=== PATIENT | male | born 1940 | race Caucasian/White ===

== ENCOUNTER 2018-10-28 15:01 | Emergency (ER) | payer OTHER ==
[2018-10-28] MEDS ORDERED: NA CHLORIDE 0.9% 500 ML ONE ×2 (15:25→16:54)
[2018-10-28 15:37] LABS: Absolute Lymphocytes (CBC) 0.7 K/uL (0.7-4.9); Absolute Monocytes 0.7 K/uL (0.1-1.3); Absolute Neutrophil 8.1 K/uL (1.8-8.0); Basophils % 0.3 % (0-1.3); Eosinophils % 0.3 % (0-4.4); Hematocrit 42.2 % (39.6-49.0); Lymphocytes % 7.6 % (15.3-44.8); MPV 8.1 fL (7.6-11.3); Monocytes % 6.9 % (3.3-12.3); RBC Red Blood Cell Count 4.74 M/uL (4.33-5.43)
[2018-10-28 15:53] LABS: BUN Blood Urea Nitrogen 29 mg/dL (7-18); Bicarbonate 21 mmol/L (21-32); Glucose Level 177 mg/dL (74-106); Potassium 3.9 mmol/L (3.5-5.1); Sodium Level 137 mmol/L (136-145); Troponin (Emerg Dept Use Only) < 0.02 ng/mL (0.0-0.045)
--- NOTE | 2018-10-28 16:05 | RAD REPORT ---
EXAM DESCRIPTION: CT - Head Brain Wo Cont - 10/28/2018 3:47 pm CLINICAL HISTORY: dizziness COMPARISON: None TECHNIQUE: Computed axial tomography of the head was obtained. IV contrast was not requested. All CT scans are performed using dose optimization technique as appropriate and may include automated exposure control or mA/KV adjustment according to patient size. FINDINGS: An intracranial bleed is not seen . The ventricles are normal in caliber. No extra-axial fluid collection is noted. Mild low-density areas within periventricular, deep and sub cortical white matter likely represent ischemic changes secondary to small vessel disease. Fluid within the sinuses/ mastoids is not seen. IMPRESSION: No acute intracranial abnormality is seen. If patient's symptoms persist MRI of the bra in would be recommended.
--- NOTE | 2018-10-28 16:33 | ER ---
Nurse's Notes [facility] Name: Deondre Wong Jr Age: 78 yrs Sex: Male : 1940 Arrival Date: 10/28/2018 Time: 15:02 Bed 30 Private MD: Diagnosis: Dizziness and giddiness;Dehydration Presentation: 10/28 15:02 Presenting complaint: EMS states: "HE WAS LIGHT HEADED. HE REFUSED TO COME WITH US AT FIRST. HE SAID HE WAS DRIVING A LOT. VITAL SIGNS ARE GOOD. HIS SUGAR WAS 191. HE SAYS HE IS DIABETIC BUT DOES NOT TAKE ANY MEDICINE. HE WAS WOBBLY WHEN HE STOOD UP.". Transition of care: patient was not received from another setting of care. Onset of symptoms was October 28, 2018 at 14:30. Risk Assessment: Do you want to hurt yourself or someone else? Patient reports no desire to harm self or others. Initial Sepsis Screen: Does the patient meet any 2 criteria? No. Patient's initial sepsis screen is negative. Does the patient have a suspected source of infection? No. Patient's initial sepsis screen is negative. Care prior to arrival: None. 15:02 Method Of Arrival: EMS: [facility] 15:02 Acuity: WAI 3 rv Triage Assessment: 15:10 General: Appears in no apparent distress. comfortable, Behavior is calm, cooperative. rv Pain: Complains of pain in abdomen. Historical: - Allergies: 15:06 NSAIDS; rv - Home Meds: 15:06 None [Active]; rv - PMHx: 15:06 Hypertension; Diabetes - NIDDM; rv - PSHx: 15:06 ABDOMINAL SURGERY; TRACHEOSTOMY; VOCAL CORDS REMOVED; rv - Immunization history:: Adult Immunizations unknown. - Social history:: Smoking status: unknown. - Ebola Screening: : Patient negative for fever greater than or equal to 101.5 degrees Fahrenheit, and additional compatible Ebola Virus Disease symptoms Patient denies exposure to infectious person Patient denies travel to an Ebola-affected area in the 21 days before illness onset. - Family history:: not pertinent. - Hospitalizations: : No recent hospitalization is reported. Screenin:09 Abuse screen: Denies threats or abuse. Denies injuries from another. Nutritional rv screening: No deficits noted. Tuberculosis screening: No symptoms or risk factors identified. 15:09 Fall Risk No fall in past 12 months (0 pts). Secondary diagnosis (15 points) impaired rv mobility, No IV (0 pts). Ambulatory Aid- None/Bed Rest/Nurse Assist (0 pts). Gait- Weak (10 pts.). Mental Status- Oriented to own ability (0 pts). Total Freire Fall Scale indicates Low Risk Score (25-44 pts). Fall prevention measures have been instituted. Side Rails Up X 2 Placed close to Nursing Station Frequent Obs/Assesments occuring As available Patient and Family Educated on Fall Prevention Program and strategies. Assessment: 15:35 General: Appears in no apparent distress. comfortable, Behavior is calm, cooperative. rv Pain: Complains of pain in abdomen. Neuro: Level of Consciousness is awake, alert, obeys commands, Oriented to person, place, time, situation. Cardiovascular: Capillary refill < 3 seconds. Respiratory: Airway is patent. Respiratory: GI: No signs and/or symptoms were reported involving the gastrointestinal system. : No signs and/or symptoms were reported regarding the genitourinary system. EENT: No signs and/or symptoms were reported regarding the EENT system. Derm: Skin is intact. Musculoskeletal: No signs and/or symptoms reported regarding the musculoskeletal system. Vital Signs: 15:07 BP 127 / 63; Pulse 110; Resp 22 S; Temp 98(O); Pulse Ox 95% on R/A; Weight 90.72 kg (M);rv 15:30 BP 149 / 78; Pulse 101; Resp 18; Pulse Ox 95% on R/A; rv 16:30 BP 131 / 89; Pulse 99; Resp 20; Pulse Ox 97% on R/A; rv 17:00 BP 121 / 51; Pulse 97; Resp 18 S; Pulse Ox 96% on R/A; rv 17:15 BP 125 / 48; Pulse 94; Resp 17 S; Pulse Ox 97% on R/A; rv ED Course: 15:02 Patient arrived in ED. rv 15:04 Jesus Metz MD is Attending Physician. rn 15:05 Triage completed. rv 15:08 Patient has correct armband on for positive identification. Placed in gown. Bed in low rv position. Call light in reach. Side rails up X2. playground monitor on. Pulse ox on. NIBP on. 15:10 Patient placed in an exam room, on a stretcher, on awake overnight monitor, on pulse oximetry, rv Patient notified of wait time. 15:20 Inserted saline lock: 20 gauge in right antecubital area, using aseptic technique. rv Blood collected. 15:34 Troponin (emerg Dept Use Only) Sent. rv 15:34 Basic Metabolic Panel Sent. rv 15:34 CBC with Diff Sent. rv 15:34 Ketone, Serum Sent. rv 15:46 CT completed. Patient moved to CT via stretcher. Patient moved back from CT. bq 15:48 CT Head Brain wo Cont In Process Unspecified. EDMS 18:37 No provider procedures requiring assistance completed. IV discontinued, bleeding rv controlled, No redness/swelling at site. Pressure dressing applied. Administered Medications: 15:25 Drug: NS 0.9% 500 ml Route: IV; Rate: bolus; Site: right antecubital; rv 17:24 Follow up: IV Status: Completed infusion rv 17:20 Drug: NS 0.9% 500 ml Route: IV; Rate: bolus; Site: right antecubital; rv 18:37 Follow up: IV Status: Completed infusion rv Outcome: 16:32 Discharge ordered by . rn 18:37 Discharged to home via wheelchair. rv 18:37 Condition: good 18:37 Discharge instructions given to patient, Instructed on discharge instructions, follow up and referral plans. Demonstrated understanding of instructions, follow-up care. 18:38 Patient left the ED. rv Signatures: Dispatcher [employer] EDMS Paula Greenberg Roman, MD MD rn Vicente, Ronaldo, RN RN rv Corrections: (The following items were deleted from the chart) 17:25 17:20 NS 0.9% 500 ml IV at bolus in left antecubital rv rv
--- NOTE | 2018-10-28 16:34 | EDPHYS ---
Physician Documentation [facility] Name: Deondre Wong Jr Age: 78 yrs Sex: Male : 1940 Arrival Date: 10/28/2018 Time: 15:02 Bed 30 Private MD: ED Physician Jesus Metz HPI: 10/28 15:15 This 78 yrs old Male presents to ER via EMS with complaints of dizziness. rn 15:15 The patient presents with dizziness, lightheadedness. Onset: The symptoms/episode rn began/occurred just prior to arrival. Modifying factors: The symptoms are alleviated by nothing, the symptoms are aggravated by standing up. Severity of symptoms: At their worst the symptoms were moderate in the emergency department the symptoms have improved. The patient has not experienced similar symptoms in the past. Reports lightheaded and dizzy, reports has been driving around a lot for last 2 days, stopped for gas today at [employer], sat on toilet, got lightheaded, weak, muscle cramping of legs, and called for help, no syncope, employees called 911. . 15:23 Initally refused transport but when stood up felt lightheaded, EMS told him better to rn come.. 15:23 Also reports since driving around, hasn't had anything to eat in 1-2 days or drink. rn FOund with small water bottle. . Historical: - Allergies: 15:06 NSAIDS; rv - Home Meds: 15:06 None [Active]; rv - PMHx: 15:06 Hypertension; Diabetes - NIDDM; rv - PSHx: 15:06 ABDOMINAL SURGERY; TRACHEOSTOMY; VOCAL CORDS REMOVED; rv - Immunization history:: Adult Immunizations unknown. - Social history:: Smoking status: unknown. - Ebola Screening: : Patient negative for fever greater than or equal to 101.5 degrees Fahrenheit, and additional compatible Ebola Virus Disease symptoms Patient denies exposure to infectious person Patient denies travel to an Ebola-affected area in the 21 days before illness onset. - Family history:: not pertinent. - Hospitalizations: : No recent hospitalization is reported. ROS: 15:23 Constitutional: Negative for fever, chills, and weight loss, Eyes: Negative for injury, rn pain, redness, and discharge, Neck: Negative for injury, pain, and swelling, Cardiovascular: Negative for chest pain, palpitations, and edema, Respiratory: Negative for shortness of breath, cough, wheezing, and pleuritic chest pain, Abdomen/GI: Negative for abdominal pain, nausea, vomiting, diarrhea, and constipation, MS/Extremity: Negative for injury and deformity, Skin: Negative for injury, rash, and discoloration, Neuro: Negative for headache, numbness, tingling, and seizure. Exam: 15:23 Constitutional: Overweight male, sitting upright, laughing, no acute distress rn Head/Face: Normocephalic, atraumatic. Eyes: Pupils equal round and reactive to light, extra-ocular motions intact. Lids and lashes normal. Conjunctiva and sclera are non-icteric and not injected. Cornea within normal limits. Periorbital areas with no swelling, redness, or edema. ENT: dry mucous membranes Cardiovascular: Regular rate and rhythm with a normal S1 and S2. No gallops, murmurs, or rubs. Normal PMI, no JVD. No pulse deficits. Respiratory: Lungs have equal breath sounds bilaterally, clear to auscultation and percussion. No rales, rhonchi or wheezes noted. No increased work of breathing, no retractions or nasal flaring. Abdomen/GI: Soft, non-tender, with normal bowel sounds. No distension or tympany. No guarding or rebound. No evidence of tenderness throughout. Skin: Warm, dry with normal turgor. Normal color with no rashes, no lesions, and no evidence of cellulitis. MS/ Extremity: Pulses equal, no cyanosis. Neurovascular intact. Full, normal range of motion. Equal circumference. Neuro: Awake and alert, GCS 15, oriented to person, place, time, and situation. Cranial nerves II-XII grossly intact. Motor strength 5/5 in all extremities. Sensory grossly intact. Cerebellar exam normal. Vital Signs: 15:07 BP 127 / 63; Pulse 110; Resp 22 S; Temp 98(O); Pulse Ox 95% on R/A; Weight 90.72 kg (M);rv 15:30 BP 149 / 78; Pulse 101; Resp 18; Pulse Ox 95% on R/A; rv 16:30 BP 131 / 89; Pulse 99; Resp 20; Pulse Ox 97% on R/A; rv 17:00 BP 121 / 51; Pulse 97; Resp 18 S; Pulse Ox 96% on R/A; rv 17:15 BP 125 / 48; Pulse 94; Resp 17 S; Pulse Ox 97% on R/A; rv MDM: 15:04 Patient medically screened. rn 16:31 Differential diagnosis: generalized weakness, hypovolemia, idiopathic dizziness, rn near-syncope. Data reviewed: vital signs, nurses notes, lab test result(s), and as a result, I will discharge patient. Counseling: I had a detailed discussion with the patient and/or guardian regarding: the historical points, exam findings, and any diagnostic results supporting the discharge/admit diagnosis, lab results, the need for outpatient follow up, to return to the emergency department if symptoms worsen or persist or if there are any questions or concerns that arise at home. Response to treatment: the patient's symptoms have markedly improved after treatment, the patient is now symptom free, patient is well hydrated. and as a result, I will discharge patient. Special discussion: I discussed with the patient/guardian in detail that at this point there is no indication for admission to the hospital. It is understood, however, that if the symptoms persist or worsen the patient needs to return immediately for re-evaluation. ED course: Pt feels better, no further dizziness, + dehydration from not eating/driving. Will dc home after rehydration.. 10/28 15:06 Order name: CBC with Diff; Complete Time: 16: rn 10/28 15:06 Order name: Basic Metabolic Panel; Complete Time: 16: rn 10/28 15:06 Order name: Troponin (emerg Dept Use Only); Complete Time: 16: rn 10/28 15:06 Order name: Ketone, Serum; Complete Time: 16: rn 10/28 15:17 Order name: CK; Complete Time: 16: rn 10/28 15:34 Order name: Glucose, Ancillary Testing; Complete Time: 16:06 EDMS 10/28 15:06 Order name: IV Start; Complete Time: 15:34 rn 10/28 15:06 Order name: EKG; Complete Time: 15: rn 10/28 15:06 Order name: EKG - Nurse/Tech; Complete Time: 15:34 rn 10/28 15:06 Order name: CT Head Brain wo Cont; Complete Time: 16: rn 10/28 15:06 Order name: Glucose Level; Complete Time: 15:34 rn Administered Medications: 15:25 Drug: NS 0.9% 500 ml Route: IV; Rate: bolus; Site: right antecubital; rv 17:24 Follow up: IV Status: Completed infusion rv 17:20 Drug: NS 0.9% 500 ml Route: IV; Rate: bolus; Site: right antecubital; rv 18:37 Follow up: IV Status: Completed infusion rv Disposition: 10/28/18 16:32 Discharged to Home. Impression: Dizziness and giddiness, Dehydration. - Condition is Stable. - Discharge Instructions: Dehydration, Adult, Dizziness. - Medication Reconciliation Form, Thank You Letter, Antibiotic Education, Prescription Opioid Use form. - Follow up: Private Physician; When: As needed; Reason: Recheck today's complaints, Re-evaluation by your physician. - Problem is new. - Symptoms have improved. Signatures: Dispatcher [employer] EDMS Jesus Metz MD MD rn Vicente, Ronaldo, RN RN rv Corrections: (The following items were deleted from the chart) 15:26 15:23 Constitutional: Overweight male, sitting upright, laughing, no acute distress rn Head/Face: Normocephalic, atraumatic. Eyes: Pupils equal round and reactive to light, extra-ocular motions intact. Lids and lashes normal. Conjunctiva and sclera are non-icteric and not injected. Cornea within normal limits. Periorbital areas with no swelling, redness, or edema. Cardiovascular: Regular rate and rhythm with a normal S1 and S2. No gallops, murmurs, or rubs. Normal PMI, no JVD. No pulse deficits. Respiratory: Lungs have equal breath sounds bilaterally, clear to auscultation and percussion. No rales, rhonchi or wheezes noted. No increased work of breathing, no retractions or nasal flaring. Abdomen/GI: Soft, non-tender, with normal bowel sounds. No distension or tympany. No guarding or rebound. No evidence of tenderness throughout. Skin: Warm, dry with normal turgor. Normal color with no rashes, no lesions, and no evidence of cellulitis. MS/ Extremity: Pulses equal, no cyanosis. Neurovascular intact. Full, normal range of motion. Equal circumference. Neuro: Awake and alert, GCS 15, oriented to person, place, time, and situation. Cranial nerves II-XII grossly intact. Motor strength 5/5 in all extremities. Sensory grossly intact. Cerebellar exam normal. rn 18:38 16:32 10/28/2018 16:32 Discharged to Home. Impression: Dizziness and giddiness; rv Dehydration. Condition is Stable. Forms are Medication Reconciliation Form, Thank You Letter, Antibiotic Education, Prescription Opioid Use. Follow up: Private Physician; When: As needed; Reason: Recheck today's complaints, Re-evaluation by your physician. Problem is new. Symptoms have improved. rn
--- NOTE | 2018-10-29 07:58 | EKG ---
Test Date: 2018-10-28 Test Time: 15:25:11 Sports Attorney: MEASUREMENT RESULTS: Intervals: Rate: 97 RI: 184 QRSD: 78 QT: 368 QTc: 467 [place]: P: 7 RI: 184 QRS: 8 T: 141 INTERPRETIVE STATEMENTS: Normal sinus rhythm Minimal voltage criteria for LVH, may be normal variant T wave abnormality, consider lateral ischemia Prolonged QT Abnormal ECG No previous ECG available for comparison Electronically Signed On 10-29-18 07:53:21 METHODS ANALYST DATA PROCESSING by Ravindra Slaughter
== END 2018-10-28 18:38 | disposition home or self-care (01) ==
LOC: ER 15:01
DX: E86.0 Dehydration (principal); I10 Essential (primary) hypertension
CPT/HCPCS: 36415; 70450; 80048; 82010; 82550; 82962; 84484; 85025; 93005; 96360; 96361; 99285

== ENCOUNTER 2018-10-28 19:15 | Observation (INO) | payer OTHER ==
--- OUTSIDE RECORDS SUMMARY | 2018-10-28 19:16 | XMS REPORT | Clinical Summary ---
:1940 Author Organization [facility] Address [address] [place] [address] Care Team Providers Name Role Phone Asked, No Pcp Primary Care Provider Unavailable Allergies Active Allergy Reactions Severity Noted Date Comments Nsaids (Non-Steroidal Anti-Inflammatory Drug) 04/25/2016 Medications Medication Sig Dispensed Refills Start Date End Date Status sertraline (ZOLOFT) sertraline 100 mg 0 Active 100 MG tablet tablet traMADol (ULTRAM) 50 tramadol 50 mg 0 Active mg tablet tablet mupirocin mupirocin 2 % 0 Active (BACTROBAN) 2 % topical cream cream metFORMIN Take 1 tablet(s) 0 Active (GLUCOPHAGE) 500 MG twice a day by oral tablet route. lovastatin (MEVACOR) lovastatin 40 mg 0 Active 40 MG tablet tablet lisinopril Take 1 tablet(s) 0 Active (PRINIVIL,ZESTRIL) every day by oral 10 MG tablet route. Active Problems Problem Noted Date Humerus head fracture 05/25/2016 Diabetes mellitus 04/25/2016 Essential hypertension 04/25/2016 HLD (hyperlipidemia) 04/25/2016 Closed fracture of surgical neck of humerus 04/25/2016 Social History Tobacco Use Types Packs/Day Years Used Date Former Smoker Alcohol Use Drinks/Week oz/Week Comments No Sex Assigned at Date Recorded Not on file Job Start Date Occupation Industry Not on file Not on file Not on file Travel History Travel Start Travel End No recent travel history available. Last Filed Vital Signs Not on file Plan of Treatment Health Maintenance Due Date Last Done Comments DIABETIC RETINAL EYE EXAM 1940 DIABETIC FOOT EXAM 1951 SHINGLES VACCINES (1 of 2) 1991 PNEUMOCOCCAL POLYSACCHARIDE VACCINE AGE 65 AND OVER 2006 PNEUMOCOCCAL-13 2006 INFLUENZA VACCINE 05/02/2018 Results Not on fileafter 2017 Insurance Payer Benefit Plan / Group Subscriber ID Type Phone Address [employer] MEDICARE [employer] MEDICARE PPO/PFFS/[facility] xxxxxxxxx PPO Advance Directives Patient has advance care planning documents on file. For more information, please contact:Wolf Ansari[address] [place] [address]
--- NOTE | 2018-10-28 20:44 | ER ---
Nurse's Notes [facility] Name: Deondre Wong Jr Age: 78 yrs Sex: Male : 1940 Arrival Date: 10/28/2018 Time: 19:16 Bed 4 Private MD: Diagnosis: Dizziness and giddiness-elevated troponin;Syncope and collapse-near;Congenital hiatus hernia Presentation: 10/28 19:28 Presenting complaint: Patient states: I was here earlier today and I just feel to dizzy la1 to drive home. Transition of care: patient was not received from another setting of care. Onset of symptoms was October 28, 2018. Risk Assessment: Do you want to hurt yourself or someone else? Patient reports no desire to harm self or others. Initial Sepsis Screen: Does the patient meet any 2 criteria? No. Patient's initial sepsis screen is negative. Does the patient have a suspected source of infection? No. Patient's initial sepsis screen is negative. Care prior to arrival: None. 19:28 Method Of Arrival: Wheelchair la1 19:28 Acuity: WAI 3 la1 Historical: - Allergies: 19:29 NSAIDS; la1 - PMHx: 19:29 Diabetes - NIDDM; Hypertension; la1 - Immunization history:: Adult Immunizations up to date. - Social history:: Smoking status: Patient/guardian denies using tobacco. - Ebola Screening: : No symptoms or risks identified at this time. - Family history:: not pertinent. Screenin:35 Abuse screen: Denies threats or abuse. Denies injuries from another. Nutritional aa1 screening: No deficits noted. Tuberculosis screening: No symptoms or risk factors identified. Fall Risk None identified. Assessment: 19:35 General: Appears in no apparent distress. comfortable, Behavior is calm, cooperative, aa1 appropriate for age. Pain: Denies pain. Neuro: Level of Consciousness is awake, alert, obeys commands, Oriented to person, place, time, situation, Moves all extremities. Full function Gait is steady, Facial symmetry appears normal, Pupils are PERRLA, Reports dizziness, Denies blurred vision numbness headache. Cardiovascular: Denies chest pain, palpitations, shortness of breath. Respiratory: Airway is patent Respiratory effort is even, unlabored, Respiratory pattern is regular, symmetrical. GI: No signs and/or symptoms were reported involving the gastrointestinal system. : No signs and/or symptoms were reported regarding the genitourinary system. EENT: No signs and/or symptoms were reported regarding the EENT system. Derm: Skin is intact, is healthy with good turgor, Skin is pink, warm \T\ dry. Musculoskeletal: Circulation, motion, and sensation intact. Capillary refill < 3 seconds. 20:01 Reassessment: Patient appears in no apparent distress at this time. Patient and/or aa1 family updated on plan of care and expected duration. Pain level reassessed. Patient is alert, oriented x 3, equal unlabored respirations, skin warm/dry/pink. Pt continues to await initial assessment from provider. 21:45 Reassessment: Patient appears in no apparent distress at this time. Patient and/or aa1 family updated on plan of care and expected duration. Pain level reassessed. Patient is alert, oriented x 3, equal unlabored respirations, skin warm/dry/pink. Pt resting quietly. Awaiting assessment from Dr. Monet for admission. 22:45 Reassessment: Patient appears in no apparent distress at this time. Patient and/or aa1 family updated on plan of care and expected duration. Pain level reassessed. Patient is alert, oriented x 3, equal unlabored respirations, skin warm/dry/pink. Awaiting bed assignment. 23:45 Reassessment: Patient appears in no apparent distress at this time. Patient and/or aa1 family updated on plan of care and expected duration. Pain level reassessed. Patient is alert, oriented x 3, equal unlabored respirations, skin warm/dry/pink. Awaiting bed assignment. 10/29 01:07 Reassessment: Patient appears in no apparent distress at this time. Patient and/or aa1 family updated on plan of care and expected duration. Pain level reassessed. Patient is alert, oriented x 3, equal unlabored respirations, skin warm/dry/pink. Report given to Mary Lou on 2nd floor. Vital Signs: 10/28 19:29 BP 141 / 71; Pulse 105; Resp 18; Temp 98.6; Pulse Ox 93% on R/A; Weight 128.37 kg; la1 Height 6 ft. 5 in. (195.58 cm); 19:58 BP 138 / 76; Pulse 92; Resp 18; Pulse Ox 92% on R/A; Pain 0/10; aa1 20:30 BP 155 / 81; Pulse 89; Resp 16; Pulse Ox 96% on R/A; Pain 0/10; aa1 21:43 BP 151 / 83; Pulse 76; Resp 16; Pulse Ox 96% on R/A; Pain 0/10; aa1 22:40 BP 145 / 92; Pulse 72; Resp 18; Pulse Ox 97% on R/A; Pain 0/10; aa1 23:40 BP 156 / 76; Pulse 79; Resp 18; Pulse Ox 97% on R/A; Pain 0/10; aa1 10/29 01:00 BP 162 / 89; Pulse 79; Resp 18; Temp 98.4; Pulse Ox 96% on R/A; Pain 0/10; aa1 10/28 19:29 Body Mass Index 33.56 (128.37 kg, 195.58 cm) la1 ED Course: 10/28 19:16 Patient arrived in ED. es 19:29 Triage completed. la1 19:29 Arm band placed on left wrist. la1 19:35 Patient has correct armband on for positive identification. Bed in low position. Call aa1 light in reach. monitor and storage bin tender on. Pulse ox on. NIBP on. 19:57 Arvind Krishna MD is Attending Physician. ivone 20:37 Karen Horna RN is Primary Nurse. aa1 20:40 Inserted saline lock: 20 gauge in right antecubital area, using aseptic technique. lp1 Blood collected. 20:42 Bhupinder York MD is Hospitalizing Provider. ivone 20:47 XRAY Chest (1 view) In Process Unspecified. EDMS 21:44 No provider procedures requiring assistance completed. Patient admitted, IV remains in aa1 place. Administered Medications: 21:00 Drug: NS 0.9% 1000 ml Route: IV; Rate: 1 bolus; Site: right antecubital; lp1 22:00 Follow up: IV Status: Completed infusion aa1 22:40 Drug: NS 0.9% 1000 ml Route: IV; Rate: 125 ml/hr; Site: right antecubital; aa1 22:40 Follow up: IV Status: Infusion continued upon admission aa1 23:50 Drug: Aspirin 162 mg Route: PO; aa1 10/29 01:43 Follow up: Response: No adverse reaction; No change in condition aa1 10/28 23:50 Drug: Lovenox 100 mg Route: Sub-Q; Site: right lower abdomen; [facility] 10/29 01:43 Follow up: Response: No adverse reaction; No change in condition [facility] 10/28 23:51 Drug: Lopressor 25 mg Route: PO; [facility] 10/29 01:42 Follow up: Response: No adverse reaction; No change in condition aa1 Outcome: 10/28 20:43 Decision to Hospitalize by Provider. [facility] 10/29 01:43 Admitted to Tele accompanied by nurse, via wheelchair, room 202, with chart, Report aa1 called to TIKA Barreto Condition: stable Discharge instructions given to patient, Instructed on the need for admit, Demonstrated understanding of instructions. 01:44 Patient left the ED. aa1 Signatures: Dispatcher [employer] Karen Carmona, RN RN aa1 Arvind Krishna MD MD cha Salyer, Anusha Rios RN RN lp1 Johny Brooks RN RN la1
--- NOTE | 2018-10-28 20:45 | EDPHYS ---
Physician Documentation [facility] Name: Deondre Wong Jr Age: 78 yrs Sex: Male : 1940 Arrival Date: 10/28/2018 Time: 19:16 Bed 4 Private MD: ED Physician Arvind Krishna HPI: 10/28 20:26 This 78 yrs old Male presents to ER via Wheelchair with complaints of ivone Dizziness. 20:26 The patient presents with dizziness, feeling faint, generalized weakness. Onset: The ivone symptoms/episode began/occurred just prior to arrival. Context: occurred at home. Modifying factors: The symptoms are alleviated by nothing, the symptoms are aggravated by standing up. Associated signs and symptoms: Pertinent positives: near-syncope. Severity of symptoms: At their worst the symptoms were mild moderate in the emergency department the symptoms are unchanged. Patient's baseline: Neuro: alert and fully oriented. The patient has experienced similar episodes in the past, a few times. Historical: - Allergies: 19:29 NSAIDS; la1 - PMHx: 19:29 Diabetes - NIDDM; Hypertension; la1 - Immunization history:: Adult Immunizations up to date. - Social history:: Smoking status: Patient/guardian denies using tobacco. - Ebola Screening: : No symptoms or risks identified at this time. - Family history:: not pertinent. ROS: 20:26 Constitutional: Negative for fever, chills, and weight loss, Eyes: Negative for injury, ivone pain, redness, and discharge, ENT: Negative for injury, pain, and discharge, Neck: Negative for injury, pain, and swelling, Cardiovascular: Negative for chest pain, palpitations, and edema, Respiratory: Negative for shortness of breath, cough, wheezing, and pleuritic chest pain, Abdomen/GI: Negative for abdominal pain, nausea, vomiting, diarrhea, and constipation, Back: Negative for injury and pain, : Negative for injury, bleeding, discharge, and swelling, MS/Extremity: Negative for injury and deformity, Skin: Negative for injury, rash, and discoloration, Psych: Negative for depression, anxiety, suicide ideation, homicidal ideation, and hallucinations, Allergy/Immunology: Negative for hives, rash, and allergies, Endocrine: Negative for neck swelling, polydipsia, polyuria, polyphagia, and marked weight changes, Hematologic/Lymphatic: Negative for swollen nodes, abnormal bleeding, and unusual bruising. 20:26 Neuro: Positive for near syncope, weakness. Exam: 20:26 Constitutional: This is a well developed, well nourished patient who is awake, alert, ivone and in no acute distress. Head/Face: Normocephalic, atraumatic. Eyes: Pupils equal round and reactive to light, extra-ocular motions intact. Lids and lashes normal. Conjunctiva and sclera are non-icteric and not injected. Cornea within normal limits. Periorbital areas with no swelling, redness, or edema. ENT: Nares patent. No nasal discharge, no septal abnormalities noted. Tympanic membranes are normal and external auditory canals are clear. Oropharynx with no redness, swelling, or masses, exudates, or evidence of obstruction, uvula midline. Mucous membranes moist. Neck: Trachea midline, no thyromegaly or masses palpated, and no cervical lymphadenopathy. Supple, full range of motion without nuchal rigidity, or vertebral point tenderness. No Meningismus. Chest/axilla: Normal chest wall appearance and motion. Nontender with no deformity. No lesions are appreciated. Cardiovascular: Regular rate and rhythm with a normal S1 and S2. No gallops, murmurs, or rubs. Normal PMI, no JVD. No pulse deficits. Abdomen/GI: Soft, non-tender, with normal bowel sounds. No distension or tympany. No guarding or rebound. No evidence of tenderness throughout. Back: No spinal tenderness. No costovertebral tenderness. Full range of motion. Male : Normal genitalia with no discharge or lesions. Skin: Warm, dry with normal turgor. Normal color with no rashes, no lesions, and no evidence of cellulitis. MS/ Extremity: Pulses equal, no cyanosis. Neurovascular intact. Full, normal range of motion. Neuro: Awake and alert, GCS 15, oriented to person, place, time, and situation. Cranial nerves II-XII grossly intact. Motor strength 5/5 in all extremities. Sensory grossly intact. Cerebellar exam normal. Normal gait. Psych: Awake, alert, with orientation to person, place and time. Behavior, mood, and affect are within normal limits. 20:26 Respiratory: the patient does not display signs of respiratory distress, Respirations: normal, Breath sounds: are clear throughout, laryngectomy . Vital Signs: 19:29 BP 141 / 71; Pulse 105; Resp 18; Temp 98.6; Pulse Ox 93% on R/A; Weight 128.37 kg; la1 Height 6 ft. 5 in. (195.58 cm); 19:58 BP 138 / 76; Pulse 92; Resp 18; Pulse Ox 92% on R/A; Pain 0/10; aa1 20:30 BP 155 / 81; Pulse 89; Resp 16; Pulse Ox 96% on R/A; Pain 0/10; aa1 21:43 BP 151 / 83; Pulse 76; Resp 16; Pulse Ox 96% on R/A; Pain 0/10; aa1 22:40 BP 145 / 92; Pulse 72; Resp 18; Pulse Ox 97% on R/A; Pain 0/10; aa1 23:40 BP 156 / 76; Pulse 79; Resp 18; Pulse Ox 97% on R/A; Pain 0/10; aa1 10/29 01:00 BP 162 / 89; Pulse 79; Resp 18; Temp 98.4; Pulse Ox 96% on R/A; Pain 0/10; [facility] 10/28 19:29 Body Mass Index 33.56 (128.37 kg, 195.58 cm) la1 MDM: 10/28 19:57 Patient medically screened. [facility] 20:26 Data reviewed: vital signs, nurses notes, lab test result(s), EKG, radiologic studies, [facility] CT scan, plain films. 10/28 20:25 Order name: Basic Metabolic Panel [facility] 10/28 20:25 Order name: CBC with Diff; Complete Time: 23:23 [facility] 10/28 20:25 Order name: LFT's; Complete Time: 23:23 [facility] 10/28 20:25 Order name: Magnesium; Complete Time: 23:23 [facility] 10/28 20:25 Order name: NT PRO-BNP; Complete Time: 23:23 [facility] 10/28 20:25 Order name: PT-INR; Complete Time: 23:23 [facility] 10/28 20:25 Order name: Troponin (emerg Dept Use Only); Complete Time: 23:23 [facility] 10/28 20:25 Order name: XRAY Chest (1 view); Complete Time: 23:23 [facility] 10/28 20:25 Order name: Lipase; Complete Time: 23:23 [facility] 10/28 20:25 Order name: Urine Culture [facility] 10/28 20:26 Order name: Basic Metabolic Panel; Complete Time: 23:23 [facility] 10/28 20:25 Order name: EKG; Complete Time: 20:26 [facility] 10/28 20:25 Order name: Cardiac monitoring; Complete Time: 20:49 [facility] 10/28 20:25 Order name: EKG - Nurse/Tech; Complete Time: 20:49 [facility] 10/28 20:25 Order name: IV Saline Lock; Complete Time: 20:50 [facility] 10/28 20:25 Order name: Labs collected and sent; Complete Time: 20:50 [facility] 10/28 20:25 Order name: O2 Per Protocol; Complete Time: 20:50 [facility] 10/28 20:25 Order name: O2 Sat Monitoring; Complete Time: 20:50 [facility] Administered Medications: 21:00 Drug: NS 0.9% 1000 ml Route: IV; Rate: 1 bolus; Site: right antecubital; lp1 22:00 Follow up: IV Status: Completed infusion aa 22:40 Drug: NS 0.9% 1000 ml Route: IV; Rate: 125 ml/hr; Site: right antecubital; aa 22:40 Follow up: IV Status: Infusion continued upon admission aa 23:50 Drug: Aspirin 162 mg Route: PO; [facility] 10/29 01:43 Follow up: Response: No adverse reaction; No change in condition [facility] 10/28 23:50 Drug: Lovenox 100 mg Route: Sub-Q; Site: right lower abdomen; [facility] 10/29 01:43 Follow up: Response: No adverse reaction; No change in condition [facility] 10/28 23:51 Drug: Lopressor 25 mg Route: PO; [facility] 10/29 01:42 Follow up: Response: No adverse reaction; No change in condition aa Disposition: 10/28/18 20:43 Hospitalization ordered by Bhupinder York for Observation. Preliminary diagnosis are Dizziness and giddiness - elevated troponin, Syncope and collapse - near, Congenital hiatus hernia. - Bed requested for Telemetry/MedSurg (observation). - Status is Observation. aa1 - Condition is Stable. - Problem is new. - Symptoms have improved. UTI on Admission? No Signatures: Dispatcher [employer] [facility] Zora Willoughby RN RN kl Kern, Alissa, RN RN aa1 Arvind Krishna MD MD cha Pena Anusha, RN RN lp1 Johny Brooks, RN RN la1 Corrections: (The following items were deleted from the chart) 10/28 20:34 20:26 Head Brain Wo Cont+CT.RAD.BRZ ordered. EDMS EDMS 23:29 20:43 Hospitalization Ordered by Bhupinder York MD for Observation. Preliminary [facility] diagnosis is Dizziness and giddiness; Syncope and collapse - near. Bed requested for Telemetry/MedSurg (observation). Status is Observation. Condition is Stable. Problem is new. Symptoms have improved. UTI on Admission? No. ivone 10/29 00:13 10/28 23:29 10/28/2018 20:43 Hospitalization Ordered by Bhupinder York MD for ivone Observation. Preliminary diagnosis is Dizziness and giddiness - elevated troponin; Syncope and collapse - near. Bed requested for Telemetry/MedSurg (observation). Status is Observation. Condition is Stable. Problem is new. Symptoms have improved. UTI on Admission? No. ivone 10/29 00:39 00:13 10/28/2018 20:43 Hospitalization Ordered by Bhupinder York MD for Observation. kl Preliminary diagnosis is Dizziness and giddiness - elevated troponin; Syncope and collapse - near; Congenital hiatus hernia. Bed requested for Telemetry/MedSurg (observation). Status is Observation. Condition is Stable. Problem is new. Symptoms have improved. UTI on Admission? No. ivone 01:44 00:39 10/28/2018 20:43 Hospitalization Ordered by Bhupinder York MD for Observation. aa1 Preliminary diagnosis is Dizziness and giddiness - elevated troponin; Syncope and collapse - near; Congenital hiatus hernia. Bed requested for Telemetry/MedSurg (observation). Status is Observation. Condition is Stable. Problem is new. Symptoms have improved. UTI on Admission? No. kl
[2018-10-28] MEDS ORDERED: NA CHLORIDE 0.9% 2,000 ML ONE (21:03)
[2018-10-28 21:08] LABS: Absolute Lymphocytes (CBC) 0.9 K/uL (0.7-4.9); Absolute Monocytes 0.7 K/uL (0.1-1.3); Absolute Neutrophil 7.1 K/uL (1.8-8.0); Basophils % 0.4 % (0-1.3); Eosinophils % 0.4 % (0-4.4); Hematocrit 40.6 % (39.6-49.0); MPV 8.1 fL (7.6-11.3); Monocytes % 8.2 % (3.3-12.3); RBC Red Blood Cell Count 4.61 M/uL (4.33-5.43)
[2018-10-28 21:28] LABS: Albumin 3.5 g/dL (3.4-5.0); Bilirubin Direct 0.2 mg/dL (0-0.2); Bilirubin Total 0.8 mg/dL (0.2-1.0); Magnesium 2.1 mg/dL (1.8-2.4); Potassium 4.2 mmol/L (3.5-5.1); Protein, Total 7.1 g/dL (6.4-8.2); Troponin (Emerg Dept Use Only) 0.14 ng/mL (0.0-0.045)
--- NOTE | 2018-10-28 21:46 | RAD REPORT ---
EXAM DESCRIPTION: Jp Single View10/28/2018 8:47 pm CLINICAL HISTORY: Cough COMPARISON: none FINDINGS: A large hiatal hernia is present. An opacity is present within the left lung base. Right lung appears clear of acute infiltrate. The he art size is difficult to determine given the hiatal hernia. IMPRESSION: Large hiatal hernia. Opacity within the left lung base. It is uncertain if this represents confluence of heart and overlyi ng soft tissue or an infiltrate. PA and lateral chest series is recommended
[2018-10-28] MEDS ORDERED: ENOXAPARIN 100 MG/ML SYR SQ ONE (23:48)
[2018-10-28] MEDS ORDERED: METOPROLOL TAR 25 MG TAB ONE (23:48)
[2018-10-28] MEDS ORDERED: ASPIRIN 81 MG CHEWABLE TABLET ONE (23:48)
[2018-10-29] MEDS ORDERED: ONDANSETRON 4 MG/2 ML VIAL IV PRN (01:43)
[2018-10-29] MEDS ORDERED: ACETAMINOPHEN 500 MG TAB PO PRN (01:43)
[2018-10-29] MEDS: NA CHLORIDE 0.9% 1,000 ML IV SCH ×3 (01:43→21:35)
[2018-10-29 02:54] LABS: Absolute Lymphocytes (CBC) 1.4 K/uL (0.7-4.9); Absolute Monocytes 0.8 K/uL (0.1-1.3); Absolute Neutrophil 5.2 K/uL (1.8-8.0); Basophils % 0.6 % (0-1.3); Eosinophils % 1.8 % (0-4.4); Hematocrit 37.4 % (39.6-49.0); Lymphocytes % 18.9 % (15.3-44.8); MPV 8.2 fL (7.6-11.3); Monocytes % 10.2 % (3.3-12.3); RBC Red Blood Cell Count 4.29 M/uL (4.33-5.43)
[2018-10-29 03:00] LABS: Potassium 3.8 mmol/L (3.5-5.1)
[2018-10-29] MEDS ORDERED: ASPIRIN EC 81 MG TAB PO ONE (05:29)
--- NOTE | 2018-10-29 05:45 | P.HP ---
Certification for Inpatient Patient admitted to: Observation With expected LOS: <2 Midnights Practitioner: I am a practitioner with admitting privileges, knowledge of patient current condition, hospital course, and medical plan of care. Services: Services provided to patient in accordance with Admission requirements found in Title 42 Section 412.3 of the Code of Federal Regulations Patient History Date of Service: 10/28/18 Reason for admission: Mr [place] History of Present Illness: Mr Wong is a 78 years old male with history of laryngeal cancer, s/p tracheotomy, HTN, DM II, who came to to ED initially in AM due to dizziness and weakness. He denied chest pain, or SOB. No history of fever or chills either. work up was negative and he was sent home. However, the patient remain symptomatic, he states that remain very dizzy, and came back to ER for re- evaluation. Lab work remarkable for normal WBC count, elevated trop I and D- Dimer. He denied SOB or chest pain again. EKG SR with T wave inversion on lateral leads. He was tachycardic at arrival 105 bpm, BP 141/71, O2 sat 95% on RA. Allergies NSAIDS (Non-Steroidal Anti-Inflamma Adverse Reaction (Verified 10/29/18 01:39) other - Past Medical/Surgical History Has patient received pneumonia vaccine in the past: No Diabetic: Yes -: NIDDM -: Hypertension -: laryngeal cancer -: Appendicectomy -: Rt shoulder repair -: Aneurysm Abdominal -: tracheostomy - Family History Father History Unknown: Yes Mother -: Heart disease, Blood disorders Brother -: Heart disease - Social History Smoking Status: Former smoker Alcohol use: No CD- Drugs: No Caffeine use: Yes Place of Residence: Home Review of Systems 10-point ROS is otherwise unremarkable Physical Examination - Vital Signs Temperature: 98.5 F Blood Pressure: 106/61 Pulse: 72 Respirations: 20 Pulse Ox (%): 96 - Physical Exam General: Alert, In no apparent distress HEENT: Atraumatic, PERRLA, Mucous membr. moist/pink, Other (tracheostomy in place), EOMI, Sclerae nonicteric Neck: Supple, 2+ carotid pulse no bruit, No LAD, Without JVD or thyroid abnormality Respiratory: Clear to auscultation bilaterally, Normal air movement Cardiovascular: Regular rate/rhythm, Normal S1 S2 Gastrointestinal: Normal bowel sounds, No tenderness Musculoskeletal: Tenderness (left calf tender to palpation) Integumentary: No rashes Neurological: Normal strength at 5/5 x4 extr, Normal tone, Normal affect Lymphatics: No axilla or inguinal lymphadenopathy - Studies Laboratory Data (last 24 hrs) 10/28/18 20:40: PT 11.9, INR 1.00 10/28/18 20:40: WBC 8.8, Hgb 13.4 L, Hct 40.6, Plt Count 207 10/28/18 20:40: Sodium 139, Potassium 4.2, BUN 28 H, Creatinine 1.07, Glucose 132 H, Magnesium 2.1, Total Bilirubin 0.8, AST 28, ALT 23, Alkaline Phosphatase 118 H, Lipase 191 Assessment and Plan - Problems (Diagnosis) (1) Dizziness Current Visit: Yes Status: Acute (2) ACS (acute coronary syndrome) Current Visit: Yes Status: Acute (3) HTN (hypertension) Current Visit: Yes Status: Acute Qualifiers: Hypertension type: essential hypertension Qualified Code(s): I10 - Essential (primary) hypertension (4) Elevated d-dimer Current Visit: Yes Status: Acute - Plan Will admit the patient due to dizziness, elevated trop I, elevated D-Dimer. Differential diagnosis include ACS, pulmonary embolism. Will order CTA chest, serial cardiac enzymes, cardiology consult. Will order full dose of lovenox, ASA , statins. Will wait CTA result before start beta blockers. - Advance Directives Does patient have a Living Will: Yes Does patient have a Durable POA for Healthcare: Yes - Code Status/Comfort Care Code Status Assessed: Yes Code Status: Full Code
[2018-10-29] MEDS: INSULIN -REGULAR HUMAN 50 UNIT/0.5 ML ML SQ SCH ×4 (07:30→21:00)
--- NOTE | 2018-10-29 07:58 | EKG ---
Test Date: 2018-10-28 Test Time: 23:49:20 Operational Intelligence Officer: AG3 MEASUREMENT RESULTS: Intervals: Rate: 74 NM: 232 QRSD: 84 QT: 430 QTc: 477 [place]: P: 1 NM: 232 QRS: 20 T: 86 INTERPRETIVE STATEMENTS: Sinus rhythm with 1st degree AV block Nonspecific T wave abnormality Prolonged QT Abnormal ECG Compared to ECG 10/28/2018 15:25:11 First degree AV block now present Left ventricular hypertrophy no longer present Possible ischemia no longer present T-wave abnormality still present Electronically Signed On 10-29-18 07:52:53 BODY SHOP ESTIMATOR by Ravindra Slaughter
--- NOTE | 2018-10-29 08:37 | RAD REPORT ---
EXAM DESCRIPTION: CT - Chest For Pe Angio - 10/29/2018 7:04 am CLINICAL HISTORY: Chest pain. R/O PE COMPARISON: Chest Single View dated 10/28/2018 TECHNIQUE: CT angiogram of the pulmonary arteries was performed with MIP. All CT scans are performed using dose optimization technique as appropriate and may include automated exposure control or mA/KV adjustment according to patient size. FINDINGS: Tracheostomy noted No evidence of pulmonary thromboembolism. No acute aortic finding demonstrated. Evidence of aortic arch pseudoaneurysm noted, likely chronic. Severe COPD is present. Small spiculated nodule is seen in the lingula measuring 19 mm. No significant pericardial or pleural fluid. No concerning bony finding. Large hiatal hernia. IMPRESSION: No evidence of pulmonary thromboembolism. Advanced COPD with 19 mm spiculated nodule in the lingula suspicious for malignancy. Follow-up PET-CT study would be advised. Large hiatal hernia. 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
[2018-10-29] MEDS ORDERED: ENOXAPARIN 40 MG/0.4 ML SQ SCH (09:00)
[2018-10-29] MEDS ORDERED: POTASSIUM CL SA 10 MEQ TAB PO ONE (09:00)
--- NOTE | 2018-10-29 09:00 | RAD REPORT ---
EXAM DESCRIPTION: US - Extrem Venous W Compress Zaheer - 10/29/2018 8:54 am CLINICAL HISTORY: elevated ddimer, calf pain Bilateral leg edema and swelling. COMPARISON: No comparisons TECHNIQUE: Real-time sonographic interrogation of the left and right lower extremity deep venous sys tems was performed. FINDINGS: Normal compressibility, flow augmentation, phasic flow and spontaneous flow is identified in both the left and right lower extremity deep venous systems. IMPRESSION: No sonographic evidence of left or right lower extremity deep venous thrombosis.
[2018-10-29] MEDS: ENOXAPARIN 40 MG/0.4 ML SQ SCH (10:10)
[2018-10-29] MEDS ORDERED: PNEUMOCOCCAL VACCINE 0.5 ML IMVAC ONE (16:00)
[2018-10-29] MEDS ORDERED: ATORVASTATIN 20 MG TAB PO SCH (21:00)
[2018-10-29] MEDS ORDERED: ATORVASTATIN 40 MG TAB PO SCH (21:00)
[2018-10-29] MEDS ORDERED: HOME MED 1 EA UNK (Latanoprost/Pf [Latanoprost 0.005% Eye Drop] 1 DROP) OP SCH (21:00)
[2018-10-29] MEDS ORDERED: HOME MED 1 EA UNK (Lovastatin [Lovastatin] 40 MG) PO SCH (21:00)
[2018-10-29] MEDS: SERTRALINE HCL 100 MG TAB PO SCH (21:36)
--- NOTE | 2018-10-29 21:38 | PN ---
Date of Progress Note: 10/29/2018 Subjective: The patient seen and examined. Chart reviewed and case discussed with RN. The patient does not have any significant complaints. Treatment plan explained, all questions answered. I spoke to him regarding lung nodule which is likely a lung cancer. Medications: List reviewed. Code Status: Full. Physical Examination: Vital Signs: Temperature 98.3, heart rate 79, blood pressure 136/64, respirations 14, O2 of 96% on r oom air. General: Awake, alert, oriented x3. Elderly male, obese, BMI 33. CV: S1, S2. Regular rate and rh ythm. Peripheral pulses present. Respiratory: Moving air well bilaterally. No wheezing or stridor. Gastrointestinal: Abdomen is soft, nontender, nondistended. Positive bowel sounds. Extremities: No clubbing, cyanosis, or edema. Neuro: Cranial nerves 2 through 12 intact grossly. No focal neurological deficit. HEENT: Normocephalic, atraumatic. PERRLA. EOMI. Moist mucous membranes. Poor oral dentition. Co njunctivae anicteric. Neck: The patient has a tracheostomy. Laboratory Data: Sodium 139, potassium 3.8, chloride 108, CO2 of 22, BUN 24, creatinine 0.91, glucos e 135, calcium 7.8. D-dimer 1624, INR 1. WBC 7.7, H and H 12.6 and 37.4, platelets 200, neutrophils 68%. CT angio chest shows no evidence of PE, advanced COPD with 19 mm spiculated nodule in the ling mandi suspicious for malignancy. Large hiatal hernia, suspected chronic aortic arch pseudoaneurysm. Assessment: A 78-year-old male with: 1.Dizziness. 2.Elevated troponin level. 3.Essential hypertension. 4.Elevated D-dimer, negative CT angio, no pulmonary embolism. 5.Lingular spiculated nodule, likely lung cancer. Consult Pulmonology. Deep vein thrombosis prophy laxis addressed. Plan: Cardiology consultation. Echocardiogram. Pulmonology consultation. Resume home medications. KYRA rose SA/GUILLERMINA Voice ID: [id number] Report ID: [id number]
[2018-10-30 03:18] LABS: Potassium 3.9 mmol/L (3.5-5.1)
--- NOTE | 2018-10-30 03:58 | CON ---
Date of Consultation: 10/29/[address] Barrios's service on 10/28/2018. I saw the patient on 10/29/2018. Reason For Consultation: Elevated troponin. History Of Present Illness: Mr. Wong is a 78-year-old male, has a history of diabetes and hypertens ion. He does not really take any diuretics. He mostly came in with dizziness. No chest pain, nause a, vomiting, diaphoresis, PND, orthopnea, pedal edema, palpitations, or syncope. For some reason, tr oponin was drawn, was 0.14. He was also hypocalcemic at 7.8 and elevated D-dimer was 1624 with a neg ative CTA. A chest x-ray showed hiatal hernia. Mr. Wong weighs 282 pounds. No cardiac history in the past. His dizziness is constant, not orthostatic type, not related to exertion or palpitation. Most likely secondary to benign positional vertigo. Past Medical History: Include diabetes and hypertension. Allergies: INCLUDE NONSTEROIDALS. Medications: Include metformin and hypertension medication he could not remember. No diuretics. Review of Systems: Negative. Social History: Negative. Family History: Negative. Physical Examination: General: Mr. Wong is pleasant, via a laryngoscope. No specific complaint, felt that his dizziness has improved. Denied chest pain. Vital Signs: Stable. He was afebrile. He was in sinus rhythm. HEENT: Negative. Neck: Supple without any bruit, lymphadenopathy, JVD, or thyromegaly. Chest: Clear to auscultation and percussion. Cardiac: Revealed a regular rhythm and rate. No murmurs, gallops, or rubs. Abdomen: Benign. Extremities: Revealed no clubbing, cyanosis, or edema. Diagnostic Data: As stated earlier. Impression And Plan: Dizziness, most likely benign positional vertigo. I am not so sure if the hypo calcemia can cause this, but this is possible. He has elevated troponin and D-dimer that are nonspec ific. He is not having any chest pain or shortness of breath. I do not recommend any cardiac workup at this point except for the echocardiography. CTA ruled out pulmonary embolus. His other issues i nclude diabetes, hypertension, large hiatal hernia, and morbid obesity. We will see what the echocar diogram shows prior to making final decisions. If his dizziness persists, certainly, an ENT consult as an outpatient may be reasonable. If the echocardiogram is normal, he can go home. JUAN PABLO Voice ID: [id number] Report ID: [id number]
[2018-10-30] MEDS ORDERED: POTASSIUM CL SA 10 MEQ TAB PO ONE (05:00)
[2018-10-30] MEDS: NA CHLORIDE 0.9% 1,000 ML IV SCH ×2 (05:38→07:43)
[2018-10-30] MEDS ORDERED: LEVOTHYROXINE SOD 0.05 MG TABLET PO SCH (06:00)
[2018-10-30] MEDS: INSULIN -REGULAR HUMAN 50 UNIT/0.5 ML ML SQ SCH ×2 (07:30→11:30)
--- NOTE | 2018-10-30 08:04 | ECHO ---
HEIGHT: 6 ft 5 in WEIGHT: 282 lb 7 oz DATE OF STUDY: 10/29/[address]: Bhupinder Monet MD 2-DIMENSIONAL: YES M.MODE: YES DOPPLER: YES COLOR FLOW: YES TDS: YES PORTABLE: DEFINITY: BUBBLE STUDY: DIAGNOSIS: DIZZINESS CARDIAC HISTORY: CATHERIZATION: NO SURGERY: NO PROSTHETIC VALVE: NO PACEMAKER: NO MEASUREMENTS (cm) DIASTOLIC (NORMALS) SYSTOLIC (NORMALS) IVSd 1.3 (0.6-1.2) LA Diam (1.9-4.0) LVEF 65% LVIDd 4.5 (3.5-5.7) LVIDs 2.9 (2.0-3.5) %FS 35% LVPWd 1.5 (0.6-1.2) Ao Diam 3.8 (2.0-3.7) 2 DIMENSIONAL ASSESSMENT: RIGHT ATRIUM: NORMAL LEFT ATRIUM: NORMAL RIGHT VENTRICLE: NORMAL LEFT VENTRICLE: LEFT VENTRICULAR HYPERTROPHY TRICUSPID VALVE: NORMAL MITRAL VALVE: NORMAL PULMONIC VALVE: NORMAL AORTIC VALVE: NORMAL PERICARDIAL EFFUSION: NONE AORTIC ROOT: NORMAL LEFT VENTRICULAR WALL MOTION: NORMAL DOPPLER/COLOR FLOW: MILD TRICUPSID REGURGIATION COMMENTS: MILD TRICUSPID REGURGITATION. LEFT VENTRICULAR HYPERTROPHY. NORMAL EJECTION FRACTION. NO WALL MOTION ABNORMALITY. NO EFFUSION. TECHNOLOGIST: BROOK JAMESON
[2018-10-30] MEDS: SERTRALINE HCL 100 MG TAB PO SCH (09:33)
[2018-10-30] MEDS: ENOXAPARIN 40 MG/0.4 ML SQ SCH (09:33)
--- NOTE | 2018-10-30 11:52 | P.CNS ---
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 former 3 pack-a-day smoker he does not use any bronchodilators at home denies any chest pain was found to have a solitary pulmonary nodule in the right upper lobe suspicious for cancer He feels fine now wants to go home apparently he is from [facility] to follow up with his doctors at the [facility] Allergies NSAIDS (Non-Steroidal Anti-Inflamma Adverse Reaction (Verified 10/29/18 01:39) other Home Medications: Latanoprost/Pf [Latanoprost 0.005% Eye Drop] 1 drop OP BEDTIME 10/29/18 Levothyroxine [Synthroid*] 50 mcg PO [id number] 10/29/18 Lovastatin 40 mg PO BEDTIME 10/29/18 Metformin HCl [Metformin HCl ER] 500 mg PO DAILY 10/29/18 Multivit-Min/FA/Lycopen/Lutein [Centrum Silver Men Tablet] 1 tab PO DAILY Sertraline [Zoloft*] 100 mg PO BID 10/29/18 - Past Medical/Surgical History Diabetic: Yes -: NIDDM -: Hypertension -: laryngeal cancer -: Appendicectomy -: Rt shoulder repair -: Aneurysm Abdominal -: tracheostomy - Family History Father History Unknown: Yes Mother Medical History: Heart disease, Blood disorders Brother Medical History: Heart disease - Social History Smoking Status: Unknown if ever smoked Alcohol use: No CD- Drugs: No Caffeine use: Yes Place of Residence: Home Review of Systems 10-point ROS is otherwise unremarkable Physical Examination Temp Pulse Resp BP Pulse Ox 97.7 F 68 18 137/64 96 10/30/18 08:00 10/30/18 08:00 10/30/18 08:00 10/30/18 08:00 10/30/18 08:00 General: Alert, Oriented x3 HEENT: Atraumatic, Other (Patient has a tracheostomy) Neck: Supple Respiratory: Clear to auscultation bilaterally, Diminished Cardiovascular: No edema, Regular rate/rhythm - Problems (1) Solitary pulmonary nodule Current Visit: Yes Status: Acute Plan: Patient is 78 years of age with a former history of COPD status post tracheostomy if after laryngectomy for laryngeal cancer was admitted feeling dizzy and weak was found to have a salty pulmonary nodule in the lingula of the left lung is high risk for cancer discussed with the patient he needs a PET scan wants to follow up with his physicians in [place] and is aware that it may be cancer labs all reviewed unremarkable was no evidence of thromboembolism on a CT pulmonary angiogram vital signs are satisfactory saturation satisfactory on room air patient does not take any bronchodilators at home urine analysis shows 2+ gram-negative rods patient's white count is normal denies any urinary symptoms vital signs have been stable so far recommend discharge home
[2018-10-30] MEDS ORDERED: PANTOPRAZOLE 40MG TABLET PO ONE (12:41)
--- NOTE | 2018-10-30 14:10 | P.DS ---
Admission Date: 10/28/18 Discharge Date: 10/30/18 Disposition: ROUTINE DISCHARGE Discharge Condition: GOOD Reason for Admission: Solitary pulmonary nodule history of COPD status post tracheostomy Consultations: Cardiology, Dr. Slaughter Pulmonology, Dr. Kennedy Brief History of Present Illness: Mr Wong is a 78 years old male with history of laryngeal cancer, s/p tracheotomy, HTN, DM II, who came to to ED initially in AM due to dizziness and weakness. He denied chest pain, or SOB. No history of fever or chills either. work up was negative and he was sent home. However, the patient remain symptomatic, he states that remain very dizzy, and came back to ER for re- evaluation. Lab work remarkable for normal WBC count, elevated trop I and D- Dimer. He denied SOB or chest pain again. EKG SR with T wave inversion on lateral leads. He was tachycardic at arrival 105 bpm, BP 141/71, O2 sat 95% on RA. Hospital Course: Patient was admitted for dizziness. Per patient, he was dry run for his birthday, lives in [place]. He was in the [employer] parking lot and felt dizzy, was brought to the hospital here. He remained stable throughout the stay, his symptoms did resolve. An echocardiogram was ordered, which was normal with ejection fraction of 65%. In the ER, his D-dimer was elevated, CT angio was done which is negative for pulmonary embolism. Pulmonology was consulted for the lingular spiculated nodule suspicious for lung cancer. Per patient, he has his doctors at [facility] in [place] and would like to follow up with them. His troponin level was elevated, though it trended down. Patient denied any chest pain or shortness of breath throughout the stay. He was instructed to follow up with his primary care physician in [place]. He was made aware of the nodule, suspicious for lung cancer. He understood, and stated he would like to follow up with his doctors in [place]. The patient was cleared for discharge by pulmonology and cardiology. Vital Signs/Physical Exam: Temp Pulse Resp BP Pulse Ox 98.2 F 75 20 149/65 H 96 10/30/18 12:00 10/30/18 12:00 10/30/18 12:00 10/30/18 12:00 10/30/18 12:00 General: Alert, Oriented x3, Other (Speaks with larngyscope) HEENT: Atraumatic, PERRLA, EOMI Neck: Supple, JVD not distended Respiratory: Clear to auscultation bilaterally, Normal air movement Cardiovascular: Regular rate/rhythm, Normal S1 S2 Gastrointestinal: Normal bowel sounds, No tenderness Musculoskeletal: No tenderness Integumentary: No rashes Neurological: Normal speech, Normal tone, Normal affect Lymphatics: No axilla or inguinal lymphadenopathy Laboratory Data at Discharge: WBC 7.7 K/uL (4.3-10.9) 10/29/18 02:20 Hgb 12.6 g/dL (13.6-17.9) L 10/29/18 02:20 Hct 37.4 % (39.6-49.0) L 10/29/18 02:20 Plt Count 200 K/uL (152-406) 10/29/18 02:20 PT 11.9 SECONDS (9.2-12.8) 10/28/18 20:40 INR 1.00 10/28/18 20:40 Sodium 143 mmol/L (136-145) 10/30/18 02:32 Potassium 3.9 mmol/L (3.5-5.1) 10/30/18 02:32 BUN 17 mg/dL (7-18) 10/30/18 02:32 Creatinine 0.88 mg/dL (0.55-1.3) 10/30/18 02:32 Glucose 127 mg/dL (74-106) H 10/30/18 02:32 Magnesium 2.1 mg/dL (1.8-2.4) 10/28/18 20:40 Total Bilirubin 0.8 mg/dL (0.2-1.0) 10/28/18 20:40 AST 28 U/L (15-37) 10/28/18 20:40 ALT 23 U/L (12-78) 10/28/18 20:40 Alkaline Phosphatase 118 U/L (45-117) H 10/28/18 20:40 Troponin I 0.05 ng/mL (0.0-0.045) H 10/30/18 02:32 Lipase 191 U/L (73-393) 10/28/18 20:40 Home Medications: Latanoprost/Pf [Latanoprost 0.005% Eye Drop] 1 drop OP BEDTIME 10/29/18 Levothyroxine [Synthroid*] 50 mcg PO [id number] 10/29/18 Lovastatin 40 mg PO BEDTIME 10/29/18 Metformin HCl [Metformin HCl ER] 500 mg PO DAILY 10/29/18 Multivit-Min/FA/Lycopen/Lutein [Centrum Silver Men Tablet] 1 tab PO DAILY Sertraline [Zoloft*] 100 mg PO BID 10/29/18 Patient Discharge Instructions: Please follow up with your primary care physician in 1 week. Please follow up with ENT fewer symptoms persist. Information provided to you on your discharge paperwork. Please return to the ER for worsening symptoms. Diet: AHA Activity: Ad danielito Followup: Orlando Kennedy MD [ACTIVE - CAN ADMIT] - Vilma Rey MD [ACTIVE - CAN ADMIT] - If your Symptoms Worsen (Please call office to schedule an appointment if your dizziness persists. ) Time spent managing pt's care (in minutes): 55
== END 2018-10-30 17:22 | disposition home or self-care (01) ==
LOC: ER 19:15 → ERHOLD 20:43 → 2ND 10-29 01:08
PROVIDERS: ADMIT Internal Medicine; ATTEND Internal Medicine
DX: R42 Dizziness and giddiness (principal); R91.1 Solitary pulmonary nodule; E11.9 Type 2 diabetes mellitus without complications; I10 Essential (primary) hypertension; R79.89 Other specified abnormal findings of blood chemistry; K44.9 Diaphragmatic hernia without obstruction or gangrene; E66.9 Obesity, unspecified; Z68.33 Body mass index [BMI] 33.0-33.9, adult; J44.9 Chronic obstructive pulmonary disease, unspecified; Z93.0 Tracheostomy status; Z87.891 Personal history of nicotine dependence; Z85.21 Personal history of malignant neoplasm of larynx
CPT/HCPCS: 36415 ×2; 71045; 71275; 80048 ×3; 80076; 82274; 82962 ×7; 83690; 83735; 83880; 84484 ×3; 85025 ×2; 85379; 85610; 87077; 87086; 87088; 87186; 93005; 93306; 93970; 94760 ×4; 96360; 96372; 97116 ×2; 97163; 99285; G0378 ×2; J1650 ×3; J7030 ×3; Q9967